=== PATIENT | male | born 1960 | race Hispanic/Latino ===

== ENCOUNTER 2021-12-02 18:56 | Emergency (ER) | payer BC ==
[2021-12-02] MEDS ORDERED: diphenhydrAMINE 50 MG/ML VIAL ONE (19:03)
[2021-12-02] MEDS ORDERED: methylPREDNISolone Sod Succ/PF 125 MG/2 ML VIAL ONE (19:03)
[2021-12-02] MEDS ORDERED: Magnesium 2 GM/50 ML BAG (IN WATER) ONE (19:03)
[2021-12-02] MEDS ORDERED: Famotidine/PF 20 mg/2ml Vial ONE (19:03)
[2021-12-02] MEDS ORDERED: Albuterol Sulfate 2.5 mg/0.5 ml Neb ONE ×2 (19:05→19:57)
[2021-12-02] MEDS ORDERED: Ipratropium Bromide 2.5 ml Neb ONE (19:05)
[2021-12-02 19:11] LABS: #Basophils 0.2 thou/uL (0.0-0.2); #Eosinphils 0.1 thou/uL (0.0-0.7); #Lymphocytes 2.6 thou/uL (1.20-3.40); #Monocytes 2.1 thou/uL (0.11-0.59); %Basophils 0.9 % (0.0-1.0); %Eosinophils 0.3 % (0.0-10.0); %Lymphocytes 13.2 % (21.0-51.0); %Monocytes 10.4 % (0.0-10.0); %Neutrophils 75.3 % (42.0-75.0); Hemoglobin 16.6 g/dL (14.0-18.0); Mean Corpuscular HGB CONC 31.9 g/dL (32.0-36.0); Mean Corpuscular Hemoglobin 27.4 pg (27.0-31.0); Mean Platelet Volume 6.7 fL (7.4-10.4); Platelet Count 363 thou/uL (130-400); RBC Distribution Width 13.3 % (11.5-14.5); Red Blood Cell (RBC) Count 6.06 mill/uL (4.70-6.10); White Blood Cell (WBC) Count 19.9 thou/uL (4.8-10.8)
[2021-12-02] MEDS ORDERED: Budesonide 0.5 MG/2 ML NEB ONE (19:27)
[2021-12-02 19:54] LABS: ALT (SGPT) 26 U/L (8-55); AST (SGOT) 7 U/L (5-34); Albumin 4.4 g/dL (3.5-5.0); Alkaline Phosphatase 90 U/L (40-110); Anion Gap 16 mmol/L (10-20); BUN (Urea Nitrogen) 16 mg/dL (8.4-25.7); Bilirubin, Total 0.5 mg/dL (0.2-1.2); Calc. Creatinine Clearance 0 mL/min (70-130); Calcium 9.2 mg/dL (7.8-10.44); Carbon Dioxide 26 mmol/L (22-29); Chloride 100 mmol/L (98-107); Globulin 2.7 g/dL (2.4-3.5); Glucose 80 mg/dL (70-105); Potassium 3.7 mmol/L (3.5-5.1); Protein, Total 7.1 g/dL (6.0-8.3); Sodium 138 mmol/L (136-145)
[2021-12-02] MEDS ORDERED: Ondansetron PF 4 MG/2 ML Vial ONE (20:31)
[2021-12-02] MEDS ORDERED: Morphine 4 MG/ML VIAL ONE (20:31)
[2021-12-02 20:46] LABS: SARS-CoV-2 NAA Rapid Test Not Detected (NotDetected)
== END 2021-12-02 22:25 | disposition short-term general hospital (02) ==
LOC: NAV ERS 18:56
DX: J45.901 Unspecified asthma with (acute) exacerbation (principal); T78.40XA Allergy, unspecified, initial encounter; Z87.891 Personal history of nicotine dependence; Z79.51 Long term (current) use of inhaled steroids
CPT/HCPCS: 71045; 80053; 84484; 85025; 93005; 94640; 94760; 96365; 96374; 96375; J1200; J2270; J2405; J2930; J3475; J7611; J7626; S0028; U0002